=== PATIENT | female | born 1950 | race Caucasian/White ===

== ENCOUNTER 2016-04-20 18:32 | Emergency (ER) | payer MEDICARE | END 2016-04-20 19:55 | disposition left against medical advice (07) | LOC: NAV ERS 18:32 | DX: Z53.21 Procedure and treatment not carried out due to patient leaving prior to being seen by health care provider (principal) ==

== ENCOUNTER 2016-05-03 12:50 | Emergency (ER) | payer MEDICARE ==
--- NOTE | 2016-05-03 13:49 | RAD ---
RIGHT KNEE FOUR VIEWS HISTORY: Right knee pain. FINDINGS: No fracture, dislocation, or bony destruction is seen. Mild degenerative change is present. POS: H
== END 2016-05-03 13:55 | disposition home or self-care (01) ==
LOC: NAV ERS 12:50
DX: M25.561 Pain in right knee (principal); I10 Essential (primary) hypertension; Z87.891 Personal history of nicotine dependence

== ENCOUNTER 2023-08-27 15:28 | Emergency (ER) | payer MEDICARE | END 2023-08-27 16:15 | disposition home or self-care (01) | LOC: NAV ERS 15:28 | DX: N81.9 Female genital prolapse, unspecified (principal); I10 Essential (primary) hypertension; Z87.891 Personal history of nicotine dependence | CPT/HCPCS: 99283 ==